=== PATIENT | female | born 1940 | race Caucasian/White ===

== ENCOUNTER → 2017-02-10 | Outpatient (CLI) | payer MEDICARE, BC ==
[~2017-02-10] MED LIST: ADVIL200 M1 PO; CHEMO INFUSION; HYDROCODON-ACE1 EAC9 PO; KEFLEX500 M1 PO; METAMUCIL283 GM PO; PAROXETINE HCL20 M1 PO; PAXIL PO; PHENERGAN25 M1 DOB; PHENERGAN25 M1 PO; PRILOSEC20 M1 PO; PRILOSEC20 MG PO; PSYLLIUM; TAMOXIFEN CITRA20 MG PO
--- NOTE | ~2017-02-10 | CT55 ---
[facility] A Service of [facility] RADIOLOGY TEXT RESULTS PATIENT: NOEL FAROOQ LOCATION: [facility] : 39 UNIT #: [id number] AGE: [address]: Luis Carlos Fallon MD SEX: F ORDER DR: [id number] [facility] [address] [place], [place] [address] [id number] O MR#: [id number] Acc #: [id number] NAME: NOEL FAROOQ : 1940 SEX: F STUDY DATE/TIME: 02/10/2017 8:43 UNIT: [facility] ROOM: STUDY DESCRIPTION: CT Chest W Con Attending Physician: Luis Carlos Fallon M.D. Referring Physician: Luis Carlos Fallon M.D. Ordering Physician: Luis Carlos Fallon M.D. Primary Care Physician: Debby Vasquez M.D. MEDICAL IMAGING REPORT This report is preliminary unless electronic signature is present EXAM CT chest with contrast DATE: 02/10/2017 HISTORY 76-year-old female with breast cancer. Observation metastatic disease. Restaging. COMPARISON CT chest 10/16/2016. PROCEDURE 5 mL axial images through the chest after intravenous contrast administration. Sagittal and coronal reformed images were obtained. The CT exam was performed with one or more of the following radiation dose reduction techniques: automatic exposure control, adjustment of mA and/or kV according to patient size, and iterative reconstruction. FINDINGS Right mastectomy changes are present. No pathologically enlarged mediastinal, hilar or axillary or supraclavicular lymph nodes are seen. Benign calcified lymph nodes are present within the mediastinum. Benign calcified granulomas are present within the right upper lobe and right lower lobe. Mild reticular fibrotic changes are demonstrated within the right middle lobe and lingula, and emphysematous changes are present. Approximately 7 mm spiculated nodular density in the right upper lobe (series 8 image 19) but stable since 10/16/2016 and significantly diminished in size since the CT chest of 05/06/2016 where measured 11 x 30 mm, flat, and no new pulmonary nodules identified. Benign calcified granulomatous change in the left upper lobe. No pericardial effusion. No pleural effusion. [facility] A Service of [facility] RADIOLOGY TEXT RESULTS PATIENT: NOEL FAROOQ LOCATION: [facility] : 39 UNIT #: [id number] AGE: [address]: Luis Carlos Fallon MD SEX: F ORDER DR: No definite osteolytic or osteoblastic lesions are identified. Benign degenerative endplate changes in the thoracic spine. IMPRESSION 1. Stable 7 mm spiculated nodule within the right upper lobe since 10/16/2016. This nodule is significantly smaller and less dense, however, when compared to the 05/06/2016 CT chest. 2. No new pulmonary nodules are seen. 3. Emphysema. Mild fibrotic change within the right middle lobe and lingula. 4. Right mastectomy. 5. Benign calcified granulomatous changes. 6. No convincing evidence of osseous metastatic disease in the chest. 7. CT abdomen and pelvis performed on this same date has been dictated separately. Dictated by... Jana Michele M.D. THIS IS AN ELECTRONICALLY VERIFIED REPORT Jana Michele M.D. at 02/13/2017 8:30 AM CLAUDIA/consuelo TD: 02/10/2017 12:47 JOB #: [id number] MEDICAL IMAGING REPORT Page 1 of 1 COPY
--- NOTE | ~2017-02-10 | CT2 ---
[facility] A Service of [facility] & [facility] RADIOLOGY TEXT RESULTS PATIENT: NOEL FAROOQ LOCATION: [facility] : 39 UNIT #: [id number] AGE: [address]: Luis Carlos Fallon MD SEX: F ORDER DR: [id number] [facility] [address] [place], [place] [address] [id number] O MR#: [id number] Acc #: [id number] NAME: NOEL FAROOQ : 1940 SEX: F STUDY DATE/TIME: 02/10/2017 8:43 UNIT: [facility] ROOM: STUDY DESCRIPTION: CT Abd and Pelv W Cont Attending Physician: Luis Carlos Fallon M.D. Referring Physician: Luis Carlos Fallon M.D. Ordering Physician: Luis Carlos Fallon M.D. Primary Care Physician: Debby Vasquez M.D. MEDICAL IMAGING REPORT This report is preliminary unless electronic signature is present EXAM CT abdomen and pelvis with contrast, 02/10/2017 HISTORY 76-year-old female with history of breast cancer. Metastatic disease to the bone. Hysterectomy. Cholecystectomy. Observation for metastatic disease. Restaging. COMPARISON CT abdomen and pelvis 10/16/2016. MRI of the lumbar spine 10/16/2016. PROCEDURE 5.0 mm axial images from the lung bases through the lesser trochanters after intravenous contrast administration. Enteric contrast was not administered. Sagittal and coronal reformatted images were obtained. TECHNIQUE This CT exam was performed with one or more of the following radiation dose reduction techniques: automatic exposure control, adjustment of mA and/or kV according to patient size, and iterative reconstruction. FINDINGS ABDOMEN FINDINGS: Cholecystectomy changes are present. Mild prominence of the intrahepatic bile ducts up to 4.0 mm and normal caliber of the common bile duct to 6.0 mm, unchanged from prior. Tiny esophageal hiatal hernia. No focal liver lesions are identified. The spleen, adrenals and kidneys within normal limits. Question pancreatic divisum morphology, but the pancreas otherwise appears unremarkable. No pathologic adenopathy. No ascites. Unopacified bowel within normal limits. Moderate atherosclerotic plaquing within the abdominal aorta and common iliac arteries. Appendix not visualized but no pericecal inflammation is seen. PELVIS FINDINGS: Sigmoid diverticulosis without acute diverticulitis. No STS. [facility] A Service of [facility] RADIOLOGY TEXT RESULTS PATIENT: NOEL FAROOQ LOCATION: [facility] : 39 UNIT #: [id number] AGE: [address]: Luis Carlos Fallon MD SEX: F ORDER DR: pelvic adenopathy or free fluid. Hysterectomy. Urinary bladder and rectum within normal limits. 6.0 mm sclerotic focus in the L5 vertebral body to left of midline, 7.0 mm sclerotic focus in the right iliac wing, unchanged from prior. These could represent bone islands or sites of metastatic disease but appear stable. Two lucent lesions within the L4 vertebral body are unchanged, may represent site of osseous metastatic disease. No new osseous abnormalities are identified. IMPRESSION 1. No significant change from the CT abdomen and pelvis from 10/16/2016. Findings suspicious for osseous metastatic disease at L4, unchanged. Tiny sclerotic foci at L5 and the right iliac wing are unchanged and may represent small foci of metastatic disease or simply benign bone islands. 2. No evidence of metastatic disease within the abdominal or pelvic cavities proper. Dictated by... Jana Michele M.D. THIS IS AN ELECTRONICALLY VERIFIED REPORT Jana Michele M.D. at 02/13/2017 8:30 AM CLAUDIA/nura TD: 02/10/2017 12:40 JOB #: [id number] MEDICAL IMAGING REPORT Page 1 of 1 COPY
[2017-02-10 11:21] LABS: POC - CREATININE 0.89 mg/dL (0.44-1.03); POC - GFR >60.0 mL/min (>60)
== END | disposition home or self-care (01) ==
LOC: CCAT 07:48
PROVIDERS: Internal Medicine Hematology
DX: C79.51 Secondary malignant neoplasm of bone (principal); R91.8 Other nonspecific abnormal finding of lung field; J43.9 Emphysema, unspecified; Z90.11 Acquired absence of right breast and nipple; Z85.3 Personal history of malignant neoplasm of breast
CPT/HCPCS: 71260; 74177; 82565; Q9967

== ENCOUNTER → 2017-05-28 | Outpatient (CLI) | payer MEDICARE, BC ==
--- NOTE | ~2017-05-28 | MY27 ---
[facility] A Service of [facility] RADIOLOGY TEXT RESULTS PATIENT: NOEL FAROOQ LOCATION: [facility] : 39 UNIT #: [id number] AGE: [address]: Wesley Naik MD SEX: F ORDER DR: [id number] [facility] [address] [place], [place] [address] [id number] O MR#: [id number] Acc #: [id number] NAME: NOEL FAROOQ : 1940 SEX: F STUDY DATE/TIME: 05/28/2017 9:54 UNIT: [facility] ROOM: STUDY DESCRIPTION: MY IGLESIA SCREEN W/ CAD UNI LT Attending Physician: Wesley Naik M.D. Referring Physician: Luis Carlos Fallon M.D. Ordering Physician: Wesley Naik M.D. Primary Care Physician: Debby Vasquez M.D. MEDICAL IMAGING REPORT This report is preliminary unless electronic signature is present EXAM Left digital screening mammogram with CAD. COMPARISON April 14, 2015, April 03, 2015, and January 14, 2014. INDICATIONS Breast cancer screening. 76-year-old asymptomatic female with history of right mastectomy for breast cancer in April 2015. FINDINGS There are scattered fibroglandular densities in the left breast. There are expected arterial calcifications in the left breast. IMPRESSION 1. No mammographic evidence of malignancy in the left breast. Continued annual screening mammography and clinical breast exam are recommended. 2. Post right mastectomy for breast cancer. Patients over the age of 40 are entered into a reminder system with target due date for the next mammogram. A result letter will also be sent to the patient. BIRADS: 2 Benign findings. Dictated by... Doe Reyes M.D. THIS IS AN ELECTRONICALLY VERIFIED REPORT Doe Reyes M.D. at 05/28/2017 11:07 PM [facility] A Service [facility] RADIOLOGY TEXT RESULTS PATIENT: NOEL FAROOQ LOCATION: [facility] : 39 UNIT #: [id number] AGE: [address]: Wesley Naik MD SEX: F ORDER DR: OSMEL/joe TD: 05/28/2017 22:33 JOB #: [id number] MEDICAL IMAGING REPORT Page 1 of 1 COPY
== END | disposition home or self-care (01) ==
LOC: CWCC 09:18
DX: Z12.31 Encounter for screening mammogram for malignant neoplasm of breast (principal); Z85.3 Personal history of malignant neoplasm of breast; Z90.11 Acquired absence of right breast and nipple
CPT/HCPCS: G0202